=== PATIENT | male | born 1940 | race African-American/Black ===

== ENCOUNTER 2023-10-01 09:30 | Inpatient (IN) | payer MEDICARE ==
[~2023-10-01] VITALS: Ht 165.1 cm; Wt 59.4 kg
[2023-10-01 11:25] LABS: HEMATOCRIT. 31.5 % (42.0-52.0); HEMOGLOBIN. 10.5 g/dL (14.0-18.0); MEAN CORPUSCULAR HEMOGLOBIN 31.1 pg (28.0-32.0); MEAN CORPUSCULAR HGB CONC 33.4 g/dL (31.0-37.0); MEAN CORPUSCULAR VOLUME 93.2 fL (80.0-94.0); MEAN PLATELET VOLUME 10.1 fl (7.4-10.4); PLATELET 118 x1000/uL (130-400); RED BLOOD CELL COUNT 3.38 mill/uL (4.7-6.1); WHITE BLOOD COUNT 6.2 x1000/uL (4.5-11.0)
[2023-10-01 11:28] LABS: DIFFERENTIAL COMMENT 1
[2023-10-01 11:35] LABS: INR 1.1; PROTHROMBIN TIME 11.8 sec (9.6-11.0)
[2023-10-01 12:02] LABS: ALANINE AMINOTRANSFERASE 24 IU/L (10-49); ALBUMIN 4.1 g/dL (3.2-4.8); ASPARTATE AMINOTRANSFERASE 34 IU/L (<34); BILIRUBIN TOTAL 0.5 mg/dL (0.1-1.0); CALCIUM 10.4 mg/dL (8.7-10.4); CARBON DIOXIDE 27 mEq/L (21-32); CHLORIDE 100 mEq/L (98-107); GLUCOSE 146 mg/dL (70-105); POTASSIUM 3.8 mEq/L (3.5-5.1); PROTEIN TOTAL 9.9 g/dL (6.0-8.3); SODIUM 133 mEq/L (136-145); UREA NITROGEN BLOOD 28 mg/dL (9-23)
[2023-10-01 12:03] LABS: ETHANOL BLOOD < 10 mg/dL (<10)
[2023-10-01 12:04] LABS: LACTIC ACID 3.3 mmol/L (0.4-2.0)
[2023-10-01 12:22] LABS: ANISOCYTOSIS 2+; PLATELET ESTIMATE SLIGHTLY DECREASED
[2023-10-01] MEDS: PIPERACILLIN/TAZO 3.375G/50ML 50 ML IV ONE (13:04)
[2023-10-01] MEDS: VANCOMYCIN 1G PREMIX 200 ML IV ONE (13:04)
[2023-10-01] MEDS: IOHEXOL-350 100 ML BOTTLE ONE (14:27)
[2023-10-01] MEDS: SODIUM CHLORIDE 0.9% 1000ML BAG (SEPSIS BOLUS) IV ONE (15:39)
[2023-10-01 16:22] LABS: CLARITY URINE CLOUDY (CLEAR); COLOR URINE YELLOW (YELLOW); GLUCOSE URINE NEGATIVE (NEGATIVE); KETONES URINE NEGATIVE (NEGATIVE); LEUKOCYTE ESTERASE URINE 2+ (NEGATIVE); NITRITE URINE NEGATIVE (NEGATIVE); OCCULT BLOOD URINE 1+ (NEGATIVE); PROTEIN URINE NEGATIVE (NEGATIVE); SPECIFIC GRAVITY URINE 1.048 (1.005-1.030); UROBILINOGEN URINE 0.2 E.U./dL (0.2-1.0)
[2023-10-01 16:30] VITALS: BP 114/68; PULSE 80; RESP 18; TEMP 98.2
[2023-10-01 16:32] LABS: *AMPHETAMINES SCREEN URINE NEGATIVE (NEGATIVE); *BARBITURATES SCREEN URINE NEGATIVE (NEGATIVE); *BENZODIAZEPINES SCREEN URINE NEGATIVE (NEGATIVE); *COCAINE SCREEN URINE NEGATIVE (NEGATIVE); CANNABINOID URINE SCREEN NEGATIVE (NEGATIVE); ECSTASY MDMA SCREEN URINE NEGATIVE (NEGATIVE); METHADONE URINE SCREEN Neg (NEGATIVE); OPIATES URINE SCREEN NEGATIVE (NEGATIVE); PHENCYCLIDINE URINE SCREEN NEGATIVE (NEGATIVE)
[2023-10-01] MEDS: METRONIDAZOLE 500 MG PREMIX 100 ML IV SCH (16:32)
[2023-10-01 16:43] LABS: SQUAMOUS EPITHELIAL CELL URINE 1+ /lpf (RARE/1+)
[2023-10-01 16:45] LABS: BACTERIA URINE 3+; WBC URINE 15-25 /hpf (0-2); YEAST URINE 2+
[2023-10-01] MEDS: CEFTRIAXONE 1GM/50ML 50 ML IV SCH (17:08)
[2023-10-01 17:47] VITALS: BP 124/74; PULSE 80; RESP 18; TEMP 97.6
[2023-10-01 17:48] VITALS: BP 124/74; PULSE 80; RESP 18; TEMP 97.6
[2023-10-01] MEDS ORDERED: AZITHROMYCIN 500MG/250ML 250 ML IV SCH (18:00)
[2023-10-01 20:00] VITALS: BP 99/60; PULSE 83; RESP 16; TEMP 97.1
[2023-10-01] MEDS: AZITHROMYCIN 500MG/250ML 250 ML IV SCH (21:12)
[2023-10-01] MEDS ORDERED: ONDANSETRON HCL 4MG/2ML INJ IV PRN (22:15)
[2023-10-01] MEDS ORDERED: CLONIDINE 0.1MG TABLET PO PRN (22:15)
[2023-10-01] MEDS ORDERED: ACETAMINOPHEN 325MG TABLET PO PRN (22:15)
[2023-10-01] MEDS: SODIUM CHLORIDE 0.9% 1,000 ML IV SCH (22:49)
[2023-10-02] VITALS (7 sets, daily range): BP systolic 95–162; BP diastolic 54–80; PULSE 70–88; RESP 16–18; TEMP 96.9–98.3
[2023-10-02] MEDS: METRONIDAZOLE 500MG TABLET PO SCH (00:14)
[2023-10-02 07:21] LABS: HEMATOCRIT. 27.7 % (42.0-52.0); HEMOGLOBIN. 9.2 g/dL (14.0-18.0); MEAN CORPUSCULAR HEMOGLOBIN 30.4 pg (28.0-32.0); MEAN CORPUSCULAR HGB CONC 33.1 g/dL (31.0-37.0); MEAN CORPUSCULAR VOLUME 91.8 fL (80.0-94.0); MEAN PLATELET VOLUME 9.8 fl (7.4-10.4); PLATELET 88 x1000/uL (130-400); RED BLOOD CELL COUNT 3.02 mill/uL (4.7-6.1); RED CELL DISTRIBUTION WIDTH 19.7 % (11.6-14.6); WHITE BLOOD COUNT 4.2 x1000/uL (4.5-11.0)
[2023-10-02 07:25] LABS: DIFFERENTIAL COMMENT 1
[2023-10-02 07:45] LABS: CALCIUM 9.1 mg/dL (8.7-10.4); CARBON DIOXIDE 26 mEq/L (21-32); CHLORIDE 104 mEq/L (98-107); CHOLESTEROL 121 mg/dL (<200); CREATINE KINASE 46 IU/L (46-171); CREATINE KINASE MB FRACTION 2.7 ng/mL (0.5-3.6); CREATININE 0.7 mg/dL (0.6-1.3); GLUCOSE 65 mg/dL (70-105); HDL CHOLESTEROL 42 mg/dL (>55); LDL CHOLESTEROL 65 mg/dL (5-100); POTASSIUM 2.9 mEq/L (3.5-5.1); SODIUM 136 mEq/L (136-145); TRIGLYCERIDE 55 mg/dL (0-150); TROPONIN I HIGH SENSITIVITY 24 ng/L (3.0-53); UREA NITROGEN BLOOD 20 mg/dL (9-23)
[2023-10-02] MEDS: ENOXAPARIN 30MG/0.3ML SYR SUBCUT SCH (08:37)
[2023-10-02] MEDS: ASPIRIN 81MG TABLET PO SCH (08:39)
[2023-10-02 13:10] LABS: NUCLEATED RED BLOOD CELLS 1 /100 WBC
[2023-10-02 13:11] LABS: ANISOCYTOSIS 1+; PLATELET ESTIMATE DECREASED
[2023-10-02 16:52] LABS: CREATINE KINASE MB FRACTION 2.4 ng/mL (0.5-3.6)
[2023-10-02] MEDS: CEFTRIAXONE 1,000 MG in DEXTROSE 5% WATER 50 ML IV SCH (16:55)
[2023-10-02] MEDS: POTASSIUM CHLORIDE 40 MEQ in DEXT 5% WATER 500 ML IV NR (23:59)
[2023-10-03] VITALS: BP 104/61; PULSE 79; RESP 18; TEMP 98.6
[2023-10-03 04:00] VITALS: BP 112/68; PULSE 64; RESP 18; TEMP 98.2
[2023-10-03 06:32] LABS: CALCIUM 9.6 mg/dL (8.7-10.4); CARBON DIOXIDE 26 mEq/L (21-32); CHLORIDE 106 mEq/L (98-107); CREATININE 0.7 mg/dL (0.6-1.3); GLUCOSE 72 mg/dL (70-105); POTASSIUM 3.6 mEq/L (3.5-5.1); SODIUM 138 mEq/L (136-145); UREA NITROGEN BLOOD 15 mg/dL (9-23)
[2023-10-03 09:41] VITALS: BP 112/66; PULSE 78; RESP 16; TEMP 97
[2023-10-03 12:00] VITALS: BP 105/73; PULSE 83; RESP 20; TEMP 97
[2023-10-03] MEDS ORDERED: IOHEXOL-350 100 ML BOTTLE ONE (13:04)
[2023-10-03 16:00] VITALS: BP 96/61; PULSE 61; RESP 18; TEMP 97.1
[2023-10-03 20:00] VITALS: BP 113/77; PULSE 89; RESP 17; TEMP 97.5
[2023-10-04] VITALS: BP 121/77; PULSE 80; RESP 17; TEMP 97.8
[2023-10-04 04:00] VITALS: BP 136/92; PULSE 80; RESP 17; TEMP 97.9
[2023-10-04 08:00] VITALS: BP 126/80; PULSE 83; RESP 18; TEMP 96
[2023-10-04 12:00] VITALS: BP 109/67; PULSE 77; RESP 16; TEMP 96.3
[2023-10-04 20:00] VITALS: BP 124/70; PULSE 86; RESP 20; TEMP 97.2
[2023-10-04] MEDS: ATORVASTATIN CALCIUM 40MG TABLET PO SCH (21:01)
[2023-10-05] VITALS: BP 145/81; PULSE 83; RESP 19; TEMP 97.9
[2023-10-05 04:00] VITALS: BP 117/82; PULSE 82; RESP 20; TEMP 98
[2023-10-05 08:00] VITALS: BP 119/78; PULSE 75; RESP 18; TEMP 97.6
[2023-10-05] MEDS: CLOPIDOGREL 75MG TABLET PO SCH (08:27)
[2023-10-05 12:00] VITALS: BP 123/78; PULSE 83; RESP 18; TEMP 97.7
[2023-10-05 16:00] VITALS: BP 102/62; PULSE 81; RESP 18; TEMP 97.7
[2023-10-05 20:00] VITALS: BP 117/73; PULSE 92; RESP 18; TEMP 98.2
[2023-10-06] VITALS: BP 121/74; PULSE 86; RESP 18; TEMP 98.8
[2023-10-06 04:00] VITALS: BP 129/81; PULSE 85; RESP 20; TEMP 98.2
[2023-10-06 08:00] VITALS: BP 126/74; PULSE 78; RESP 18; TEMP 97.5
[2023-10-06 12:00] VITALS: BP 100/60; PULSE 84; RESP 18; TEMP 98.2
[2023-10-06 16:00] VITALS: BP 119/66; PULSE 90; RESP 20; TEMP 98
[2023-10-06 20:00] VITALS: BP 136/79; PULSE 92; RESP 20; TEMP 97.4
[2023-10-07] VITALS: BP 125/66; PULSE 89; RESP 20; TEMP 98.8
[2023-10-07 04:00] VITALS: BP 120/83; PULSE 84; RESP 20; TEMP 98.2
[2023-10-07 08:00] VITALS: BP 124/86; PULSE 86; RESP 19; TEMP 98
[2023-10-07 12:00] VITALS: BP 100/63; PULSE 68; RESP 18; TEMP 97.8
[2023-10-07 16:00] VITALS: BP 105/62; PULSE 70; RESP 19; TEMP 98
[2023-10-07 20:00] VITALS: BP 117/68; PULSE 85; RESP 19; TEMP 97.5
[2023-10-08] VITALS: BP 121/73; PULSE 89; RESP 19; TEMP 97.4
[2023-10-08 04:00] VITALS: BP 121/75; PULSE 85; RESP 19; TEMP 97.5
[2023-10-08 08:00] VITALS: BP 121/75; PULSE 80; RESP 16; TEMP 97.4
[2023-10-08 12:00] VITALS: BP 117/73; PULSE 107; RESP 18; TEMP 97.1
[2023-10-08 16:00] VITALS: BP 115/74; PULSE 69; RESP 16; TEMP 97.1
[2023-10-08 20:00] VITALS: BP 126/73; PULSE 101; RESP 18; TEMP 97.7
[2023-10-09] VITALS: BP 121/81; PULSE 99; RESP 18; TEMP 97.7
[2023-10-09 04:00] VITALS: BP 124/80; PULSE 95; RESP 19; TEMP 97.6
[2023-10-09 08:00] VITALS: BP 107/67; PULSE 94; RESP 17; TEMP 97.9
[2023-10-09 12:00] VITALS: BP 98/63; PULSE 95; RESP 18; TEMP 97.7
[2023-10-09 16:00] VITALS: BP 113/64; PULSE 95; RESP 19; TEMP 97.6
[2023-10-09 20:00] VITALS: BP 123/79; PULSE 87; RESP 18; TEMP 97.1
[2023-10-10] VITALS: BP 118/77; PULSE 108; RESP 16; TEMP 97.3
[2023-10-10 04:00] VITALS: BP 127/76; PULSE 96; RESP 16; TEMP 96.9
[2023-10-10 08:00] VITALS: BP 130/74; PULSE 96; RESP 18; TEMP 97.7
[2023-10-10 12:00] VITALS: BP 108/65; PULSE 96; RESP 17; TEMP 96.9
[2023-10-10 15:57] VITALS: BP 110/70; PULSE 95; TEMP 98.1; O2SAT 98
== END 2023-10-10 16:54 | disposition home or self-care (01) | DRG 871 ==
LOC: ER 09:30 → 8WST 12:32 → EDBD 12:32 → EDBEDREQ 12:39 → EDBEDREQTM 12:39 → EDBEDREQ 12:40 → 6EST 10-07 20:43
PROVIDERS: ADMIT Internal Medicine; ATTEND Internal Medicine
DX: A41.9 Sepsis, unspecified organism (principal); G93.41 Metabolic encephalopathy; J18.9 Pneumonia, unspecified organism; N39.0 Urinary tract infection, site not specified; E87.20 Acidosis, unspecified; I69.351 Hemiplegia and hemiparesis following cerebral infarction affecting right dominant side; I95.9 Hypotension, unspecified; I10 Essential (primary) hypertension; D64.9 Anemia, unspecified; D69.6 Thrombocytopenia, unspecified
CPT/HCPCS: 36415; 70496; 70498; 70551; 71045; 80048; 80053; 80061; 80305; 80320; 81003; 82550; 82553; 83605; 83735; 84145; 84484; 85025; 87106; 93005; 93306; 97112; 97162; 97166; 97530; 97535; 99291; A6261; C1893; J0456; J0696; J1650; J2543; J3370; J3480; J3490; J7030; J7060; Q9967; G0480